=== PATIENT | female | born 1995 | race Caucasian/White ===

== ENCOUNTER 2024-02-16 10:10 | Outpatient (CLI) | payer BC, SELFPAY | END 2024-02-16 10:11 | disposition home or self-care (01) | PROVIDERS: Visit Provider Obstetrics & Gynecology | DX: E28.2 Polycystic ovarian syndrome (principal) | CPT/HCPCS: 83498; 84146; 84270; 84402; 84403 ==

== ENCOUNTER 2024-03-07 08:40 | Day surgery (SDC) | payer BC, SELFPAY ==
[2024-03-07] VITALS (11 sets, daily range): BP systolic 119–140; BP diastolic 69–81; PULSE 69–82; RESP 16–20; TEMP 36.3–36.9; O2SAT 97–99; BMI 41.1
--- OUTSIDE RECORDS SUMMARY | 2024-03-07 08:45 | XMS_ITS | Data Portability ---
Author Organization [place] [facility] Address [address] [place] [address] Care Team Providers Care Miller Head Name Role Phone Unavailable Referring Provider [phone] Assessment Encounter Date Assessment Date Assessment LastModified by Organization Details LastModified Time 11/18/2020 11/18/2020 Today I spent a considerable amount of time discussing the patient's past medical and personal history, as well as performing a physical examination all of which is documented in its entirety in the electronic health record. I reviewed the pathophysiology of the disorder, potential contributing and risk factors as well as treatment options to address their complaints. Today no imaging was obtained. I reviewed her CBCT from 10-21-2020. Findings include right condylar remodeling, subchondral cyst, and degenerative joint changes. From a treatment perspective I've recommended rehabilitative treatment approach. Treatment begins with home self management designed to rest the muscles of mastication and reduce inflammation in the temporomandibular joints. This includes heat and ice compresses, eating a soft food or pain-free diet, bilateral chewing, identifying and decreasing daytime muscle tension and modification of their sleep position. I explained and demonstrated in great detail self management of TMD. Beyond self management I do believe that they would benefit from a maxillary intraoral appliance to help stabilize the musculoskeletal structures of the jaw. In addition I've recommended rehabilitation with physical therapy. The goal of treatment is to restore function and reduce pain. I do believe that by following these treatment recommendations there is a good prognosis for reduction of symptoms. I would recommend we take imaging in another year to evaluate any changes in the subchondral cyst in the right condyle. History today was obtained from the patient. The patient has 5+ diagnoses they would like to address. Their symptoms are chronic. This case is moderate complexity because of multiple diagnoses with chronic symptoms. Data reviewed included: previous imaging. Risk of complications including disease progression were discussed. Today time spent may have included a review of past records, history taking, review of diagnoses, contributing factors, treatment plan, diagnostic testing, prognosis, expectations, risks and complications of treatment/no treatment, discussions with other providers and completing documentation was 65 minutes. I've suggested that the patient return for follow-up care in 2-4 weeks. Not available 11/21/2020 12:58:23 01/06/2021 01/06/2021 Patient was seen today for follow-up and insertion of a maxillary stabilization intraoral appliance. Diagnosis and contributing factors were reviewed. Questions were answered. Self-management and home exercise techniques were reviewed. Today the intraoral appliance was fit to patient comfort. Specifically, adjustments were made to balance appliance occlusion. Instructions on proper use and care were discussed/reviewed both written and verbally. I suggested that the patient uses the appliance as a retraining tool to aid in relaxing their jaw muscles - put it in 20-30 minutes before bed time, keeping their jaw in a relaxed balanced position, simultaneously applying a heat compress on the jaw. Potential side effects were reviewed. The patient was advised to discontinue oral appliance use should they experience untoward side effects or be unable to return for follow-up care. The patient was advised to return in 3-4 weeks to reassess their progress and continue their treatment plan as previously outlined. In addition to oral appliance insertion today we review home self-care strategies as previously discussed. We discussed additional treatment options including rehabilitative treatment with physical therapy. History today was obtained from the patient. The patient has 5+ diagnoses they would like to address. Their symptoms are not improved. This case is moderate complexity because of multiple diagnoses with chronic symptoms. Discussion with treatment team members before visit was necessary. Risk of complications including disease progression were discussed. Today time spent may have included a review of past records, history taking, review of diagnoses, contributing factors, treatment plan, diagnostic testing, prognosis, expectations, risks and complications of treatment/no treatment, discussions with other providers and completing documentation was 25 minutes. I've suggested that the patient return for follow-up care in 4 weeks. Not available 01/06/2021 15:37:46 01/06/2021 01/06/2021 Symptoms are consistent with TMD diagnosis. Patient is low complexity with 1 personal factors/comorbidit ies affecting the plan of care, low complexity decision making and a stable clinical presentation. Examination yields 4 affected structures, participation restrictions and/or functional limitations. The patient will benefit from PT to decrease pain and increase function. Contributing factors include muscle guarding, stress and poor posture. Treatment will include exercises to release muscle tension and increase strength and stability. Habit monitoring and repeated reminding techniques will be utilized to eliminate habitual clenching. Improvement in first session; cervical ROM increased, pain level decreased with jaw opening; clicking decreased. Short term goals; 3 weeks Client to be able to bite down with 50% less pain than at evaluation Client to improve cervical ROM to Within Normal Limits Improve patient awareness of muscle guarding habits to decrease pain by 50% termite helper goals-6 weeks Client to not have jaw pain upon awakening in AM Client to demonstrate independence in maintaining precautions to prevent TMJ pain Client to present with at least 75% less crepitis Improve active lateral excursion to at least 8 mm right and left without pain Client to have pain-free chewing with moderately hard diet 75% of the time Client to report pain level is reduced at least 50% as evidenced by functional limitation scale JFLS and HDI PLAN: Client is to be seen 1-2x/week for 4-8 weeks for instruction in jaw and neck exercises, postural exercises and body mechanics instructions, self-soft tissue mobilization and avoidance of precipitating parafunctional activities. [email or web address] Not available 01/06/2021 14:47:03 Plan of Treatment Reminders Order Date Submit Date Provider Last Modified By Organization Details Last Modified Time Details Appointments None recorded. Lab None recorded. Referral physical therapist referral 2020 021 Not available 15:26:52 Procedures None recorded. Surgeries None recorded. Imaging None recorded. Medication Orders None recorded. Patient TargetsNo targets recorded. Patient Instructions Encounter Date Encounter Id Patient Instructions Last Modified By Organization Details Last Modified Time 11/18/2020 [id number] oral appliance preparation* Not available 11/21/2020 15:26:52 Self Care for TMD Not availabl e 11/21/2020 15:26:52 01/06/2021 [id number] Plan: Medicare requires a primary teacher or MANAGER [employer] to authorize our plan of care. If you agree with the plan as outlined above, please sign, date and fax back to [phone]. Thank you. Primary MD signature: Date: [email or web address] Not available 01/06/2021 14:05:16 Reason for Referral Physical Therapist Referral for Myofascial pain Referring Physician: Ashley Webster, Pain Management, Encounter Date: 11/18/2020 Results Created Date Observation Date Name Description Value Unit Range Abnormal Flag LastModifiedBy Organization Detail LastModifiedTime 11/19/2020 oral appli ance prepa ratio n* Type of appliance maxill jessica stabil izatio n applia nce Not Available [place] [address], [place], [address], 11/19/2020 12:15:48 Result Notes None recorded. 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 Procedures Surgical History Date Name Laterality Status Provider Name and Address Organization Details Recorded Time 1 16707 PT Eval - Low Complexity completed Messi Johns [facility] 01/06/2021 14:23:27 12222: Therapeutic Exercise completed Messidi Johns [facility] 01/06/2021 15:01:52 [id number]: Manual Therapy completed Messi Johns [facility] 01/06/2021 15:01:42 Oral appliance completed Tamiko jones [facility] 01/06/2021 15:02:34 1 Mead Teeth Extraction completed Tamiko jones [facility] 11/18/2020 12:36:51 Imaging Results None recorded. Procedure Notes None recorded. Medical Equipment None Reported. Allergies Allergen ID Allergen Name Allergen Category Reaction Reaction Severity Criticality Documentation Date Start Date Code Code System Note Provider Name and Address Organization Details Recorded Time 79162 sumatript an medicatio n Not available Not available Not available 11/18/2020 02499 RxNorm Tamiko jones [facility] 11:47:00 Medications Name Sig Start Date Stop Date Status Note LastModified by Organization Details LastModified Time lamotrigine 150 mg tablet 2 tablets every day by oral route. active Not Available Not Available No t Available letrozole 2.5 mg tablet TAKE 1 TABLET BY MOUTH ONCE DAILY STARTING ON CYCLE DAY 5 11/08 completed Not Available Not Available Not Available lithium carbonate 300 mg tablet 4 tablets every day by oral route. active Not Available Not Available No t Available metformin ER 500 mg tablet,exte nded release 24 hr 1 tablet every day by oral route. active Not Available Not Available No t Available sertraline 50 mg tablet 1 tablet every day by oral route. active Not Available Not Available No t Available propranolol active Not Available Not A vailable Not Available Vitals Date Recorded Body temperature Body height Body mass index (BMI) Body weight Heart rate Systolic blood pressure Diastolic blood pressure Provider Name and Address Organization Details Last Updated DateTime 97.3 [degF] 160.02 cm 39.9 kg/m2 149658. 28 g 79 /min 107 mm[Hg] 81 mm[Hg] Tamiko Baird [facility] 11:46:46 Date Recorded Body height Body temperature Systolic blood pressure Diastolic blood pressure Provider Name and Address Organization Details Last Updated DateTime 01/06/2021 160.02 cm 97.3 [degF] 106 mm[Hg] 81 mm[Hg] Tamiko Baird [facility] 15:00:05 Social History Question Answer Notes LastModified by Organizat ion Details LastModified Time Tobacco Smoking Status [facility] 11/18/2020 11:33:27 What Is Your Level Of Alcohol Consumption? None Information not available 11/18/2020 What Is Your Level Of Caffeine Consumption? None Information not available 11/18/2020 Are You Currently Employed? Yes Information not available 11/18/2020 What Type Of Diet Are You Following? REGULAR Information not available 11/18/2020 Do You Reside In Or Have You Traveled To An Area Where Ebola Virus Transmission Is Active? No Information not available 11/18/2020 What Is The Highest Grade Or Level Of School You Have Completed Or The Highest Degree You Have Received? 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 0 Information not available 11/18/2020 What Is Your Relationship Status? Information not available 11/18/2020 How Much Tobacco Do You Smoke? No Information not available 11/18/2020 Do You Feel Stressed (tense, Restless, Nervous, Or Anxious, Or Unable To Sleep At Night)? [id number] Information not available 11/18/2020 Do You Use Any Illicit Or Recreational Drugs? No Information not available 11/18/2020 How Many Years Have You Smoked Tobacco? 0 Information not available 11/18/2020 Sex: Unknown Functional Status Question Answer Note LastModified by Organization D etails LastModified Time What is your exercise level? Moderate Information not available 11/18/2020 Mental Status None recorded. Family History Relationship Description Onset Age of this Age Resolved Age Notes Maternal Aunt Substance abuse Maternal Grandmother Migraine Paternal Grandfather Substance abuse Father Substance abuse Maternal Grandfather Substance abuse Medical History Condition Response Anxiety Disorder Y Other Y Headaches Y Migraines Y Mental Problems Y Gynecological HistoryNo gynecological history recorded. Obstetrics History GPAL:G 0 P 0 0 0 0 Immunizations Vaccine Type Date Status Provider Name and Address Organization Details Recorded Time Influenza, split virus, quadrivalent, preservative 05/06/2021 completed BRANDEN [facility] 11/18/2020 11:48:25 Past Encounters Encounter ID Performer Location Encounter Start Date Encounter Closed Date Diagnosis/Indication Diagnosis SNOMED-CT Code [id number] Ashley Gallardo [address] [place] [id number] 11/18/2020 11:26:33 11/18/2020 14:55:46 Migraine 48870349 Tension-type headache 39 4114656 Arthralgia of temporomandibular joint 94920778 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 365383641082595 05 Myofascial pain 55066119 9 Neck pain 59923105 Degenerati ve arthritis of temporomandibular joint 757071963 [id number] Ashley Gallardo [address] [place] [id number] 01/06/2021 14:01:56 01/06/2021 15:34:31 Degenerative arthritis of temporomandibular joint 229886422 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 140067017488521 05 Myofascial pain 50291356 9 Migraine 22152036 Tension-type headache 39 9123565 Neck pain 24825303 Arthralgia of temporomandibular joint 51017078 [id number] Messi Johns Chan estes [address] [place] [id number] 01/06/2021 14:04:08 01/06/2021 15:19:36 Arthralgia of temporomandibular joint 61185949 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 934675504320909 05 Degenerati ve arthritis of temporomandibular joint 081882724 Migraine 92319039 Myofascial pain 36073962 9 Neck pain 53346998 Tension-type headache 39 1856480 Health Concerns Section Related Observation LastModified by Organization Detai ls LastModified Time None Recorded Concern Status LastModified by Organization Details LastModified Time None Recorded Advance Directives Directive None Recorded Payers Encounter Date Sequence Insurance Name Policy Number Policy Miller Covered Member ID Miller Member ID Guarantor Name 11/18/2020 1 PREFERREDONE Stevo Leslee [id number] [facility] 01/06/2021 1 PREFERREDONE Stevo Leslee [id number] Svetlana [facility] 01/06/2021 1 PREFERREDONE Stevo Leslee [id number] Svetlana Leslee Notes Date Note Type Note Provider Name and Address Organization Details Recorded Time 11/18/2020 text/html HPI Notes: gener al HPI for jaw, face, TMD pain Reported by patient. Onset: started 10 year(s) ago Location: right; masseteric Quality: dull Severity: moderate; pain level 1-6/10 Duration constant Symptom triggers: stress; anxiety; chewing gum; chews hard/crunchy/chewy foods; dental work Aggravating Factors: yawning; wide mouth opening Alleviating Factors: NSAIDs; acetaminophen; soft foods Associated Symptoms: jaw clicking right; jaw popping right; tooth pain; headaches Prior Tests: CT maxillofacial Prior opinion dentist Patient presents today for evaluation of a possible temporomandibular disorder. These symptoms are chronic and began with significant stress and tension. Previous consultation include evaluation with her dentist. Symptoms are right sided only and aggravated by jaw use and function. The patient is not aware of teeth clenching and grinding. Svetlana reports that for the last 16 years, she has been experiencing migraines and tension headaches. She reports migraines 2x/wk and tension headaches 3x/wk. She takes propranolol which helps reduce the duration of the headaches, but it does not seem to be working as well as it used to. Svetlana is allergic to triptans. Svetlana states that 10 years ago she began having right-sided jaw pain and tmj clicking. It is difficult to eat chewy foods. She states that her jaw will lock about once a year for 10-20 minutes. Svetlana recently had a CBCT of her tmj's which she brought with her today. Ashley jones [facility] 11/21/2020 15:26:56 01/06/2021 text/html HPI Notes: gener al HPI for jaw, face, TMD pain Reported by patient. Onset: started 10 year(s) ago Location: right; masseteric Quality: dull Severity: moderate; pain level 1-6/10 Duration constant Symptom triggers: stress; anxiety; chewing gum; chews hard/crunchy/chewy foods; dental work Aggravating Factors: yawning; wide mouth opening Alleviating Factors: NSAIDs; acetaminophen; soft foods Associated Symptoms: jaw clicking right; jaw popping right; tooth pain; headaches Prior Tests: CT maxillofacial Prior opinion dentist Personal factors and/or comorbidities affecting the plan of care include . Functional limitations and participation restrictions include . Patient presents today for PT evaluation regarding jaw pain, neck pain and headaches. Symptoms began with no clear triggering events. Functional limitations and participation restrictions include eating, yawning, talking, laughing, oral hygiene. Personal factors and/or comorbidities affecting the plan of care include: *Clenching yes a lot *Bruxism yes *Leaning on chin sometimes *Biting objects no *Unilateral chewing left more than right *Low stress level *Low anxiety level *Nicotine no *Caffeine 0 per day *Sleep position sides and stomach Patient presents today for evaluation of a possible temporomandibular disorder. These symptoms are chronic and began with significant stress and tension. Previous consultation include evaluation with her dentist. Symptoms are right sided only and aggravated by jaw use and function. The patient is not aware of teeth clenching and grinding. Svetlana reports that for the last 16 years, she has been experiencing migraines and tension headaches. She reports migraines 2x/wk and tension headaches 3x/wk. She takes propranolol which helps reduce the duration of the headaches, but it does not seem to be working as well as it used to. Svetlana is allergic to triptans. Svetlana states that 10 years ago she began having right-sided jaw pain and tmj clicking. It is difficult to eat chewy foods. She states that her jaw will lock about once a year for 10-20 minutes. Svetlana recently had a CBCT of her tmj's which she brought with her today. She has had problems for 10 Jaw hurts to open;right 100 percent. Jaw opening 51 lateral left 7 mm; right 9 mm. Painful going left Cervical rotation left 73; right 54; improves to right 83, left5 80 degrees following STM to K27, SCM Temporalis right extremely tender; this could limit ability to translate jaw right, cause jaw pain with opening, and cause headache pain; she opens jaw easier post gentle cross friction STM moderate poor posture with forward head and shoulder; foam roll trial with blue theraband for scapular squeezes BRANDEN [facility] 01/06/2021 15:02:06 01/06/2021 text/html HPI Notes: gener al HPI for jaw, face, TMD pain Reported by patient. Onset: started 10 year(s) ago Location: right; masseteric Quality: dull Severity: moderate; pain level 1-6/10 Duration constant Symptom triggers: stress; anxiety; chewing gum; chews hard/crunchy/chewy foods; dental work Aggravating Factors: yawning; wide mouth opening Alleviating Factors: NSAIDs; acetaminophen; soft foods Associated Symptoms: jaw clicking right; jaw popping right; tooth pain; headaches Prior Tests: CT maxillofacial Prior opinion dentist Patient presents today for insertion of a maxillary stabilization oral appliance. They note no changes in symptoms which along with prior data was reviewed, updated and documented in the patient history of present illness. (S)he describes partial compliance with home self care as previously recommended. Svetlana states that her symptoms have not yet changed. She had her first appointment with Messi Johns today for p/t. She will begin doing her home exercises. BRANDEN [facility] 01/06/2021 15:38:49 OBGyn Episode No OBEpisode recorded.
[2024-03-07] MEDS: SODIUM CHLORIDE 0.9 % (FLUSH) 10 ML SYRINGE IVF (09:20)
[2024-03-07] MEDS: LACTATED RINGERS 1000 ML 1,000 ML 100 ML IV (09:20)
[2024-03-07 09:21] LABS: Ur HCG Qualitative* Negative (Negative)
--- NOTE | 2024-03-07 11:47 | W.PM.H&PU ---
History & Physical Update History & Physical Update H&P Reviewed and patient assessed: No changes noted
[2024-03-07] MEDS: BUPIVACAINE 0.25% 30 ML INJECTION (12:35)
--- NOTE | 2024-03-07 12:46 | W.ANESCHARGE ---
Anesthesia Charges Start Date/Time Anesthesia Start Date: 03/07/24 Anesthesia Start Time: 12:01 Stop Date/Time Anesthesia Stop Date: 03/07/24 Anesthesia Stop Time: 14:19
--- NOTE | 2024-03-07 13:13 | W.PM.GYNPROC ---
Procedure Note Date of procedure: 03/07/24 Will [facility] bill your pro fee for this procedure?: Yes Pre-op diagnosis: Undesired fertility Post-op diagnosis: Same Procedure: Laparoscopic bilateral salpingectomy Removal of IUD Anesthesia: GETA Complications: None Surgeon: Arianna Newell MD Estimated blood loss (mL): 5 IV fluids (mL): 900 Urine Output (mL): 300 Pathology: specimen obtained, sent to pathology (Bilateral fallopian tubes) Condition: stable Disposition: same day Findings: 1. Upon pelvic exam under anesthesia, the cervix and vagina were normal in appearance. IUD string was noted at the external cervical os. Uterus was mobile and anteverted, of normal size and texture. There were no palpable adnexal masses. 2. Upon laparoscopy, survey of the upper abdomen revealed a normal appearance to the inferior edge of the liver, gallbladder and stomach. Bowels were grossly normal appearance. Appendix was not visualized and with likely retrocecal. Survey of the pelvis revealed normal appearance to the uterus. Bilateral tubes and ovaries were normal in appearance. The cul-de-sac and bladder reflection were normal in appearance. Procedure Description: Patient was taken to the operating room with IV running. She was positioned in dorsal lithotomy position with her legs fully supported in Yellofin stirrups. General anesthesia was administered. She was prepped and draped in the usual sterile fashion. Bimanual exam was performed for the above-noted findings. Speculum was inserted. A single-toothed uterine manipulator was inserted through the cervix into the lower uterine segment, and affixed to the anterior cervical lip. Speculum was removed. Corbin catheter was placed. Patient's legs were placed in neutral position. Attention was turned to patient's abdomen. The infraumbilical area was infiltrated with small amount of Marcaine. An infraumbilical incision was made with a scalpel and carried through to the underlying layer of fascia with a hemostat. The 5 mm Fios Kii trocar was assembled with laparoscope within, and insufflator attached. While tenting up the abdomen with the help of a Aron clamp on the fascia, the trocar was passed through the anterior abdominal wall into the peritoneal cavity. Trocar was removed. Pneumoperitoneum was achieved. Survey of abdomen and pelvis revealed the above-noted findings. Two additional port sites were created. The first was in the patient's left lower quadrant, just superior medial to the left ASIS. The second was a hand's breath superior to and slightly medial to the first. Each was infiltrated with small amount of Marcaine prior to incision. A 5 mm incision was made at each site, making sure the large vessels were out of harm's way. A 5 mm Fios Kii port was inserted at each site, under direct visualization and without complication. The balloon on each of the three ports was inflated, holding each in place. The left tube was elevated. The blood supply was cauterized and transected with the [employer]underbeat cautery device. Dissection was carried laterally to medially through the mesosalpinx, and the tube was ultimately cauterized and transected at the left uterine cornua. Hemostasis was noted. Left tube was removed through the port and sent to pathology. This procedure was repeated on the right side, and hemostasis was again noted. Right tube was removed the port and sent to pathology. All instruments were removed from the ports, and pneumoperitoneum was released. The ports were removed. The skin of each port site was closed with a subcuticular stitch of 4-0 Monocryl. Surgical glue was applied above this. With the patient's legs back in lithotomy position, the uterine manipulator was removed. Ring forcep was used to grasp the IUD string, which was removed with gentle traction. Hemostasis was noted. The Corbin catheter was removed. Patient tolerated procedure well and was taken to recovery area in stable condition.
--- NOTE | 2024-03-07 13:21 | W.ANESCHARGE ---
Anesthesia Charges Start Date/Time Anesthesia Start Date: 03/07/24 Anesthesia Start Time: 12:01 Stop Date/Time Anesthesia Stop Date: 03/07/24 Anesthesia Stop Time: 14:19
== END 2024-03-07 14:29 | disposition home or self-care (01) ==
PROVIDERS: PCP Family Medicine; Visit Provider Obstetrics & Gynecology
PROC: (CPT 58661; principal; 2024-03-07 10:00)
DX: Z30.2 Encounter for sterilization (principal)
CPT/HCPCS: 58661; 00851; 36415; 81025; 86850; 86900; 86901; 88302; J0330; J0665; J1100; J1630; J1885; J2250; J2405; J2704; J3010; J3490; J7120